=== PATIENT | male | born 1990 | race Caucasian/White ===

== ENCOUNTER 2020-07-12 14:03 | Emergency (ER) | payer OTHER ==
[~2020-07-12] VITALS: Ht 175.3 cm; Wt 101.2 kg
[2020-07-12] MEDS ORDERED: KETO10TA2 PO (19:02)
[2020-07-12] MEDS ORDERED: MORGIDOX100 MG PO (19:02)
== END 2020-07-12 19:14 | disposition home or self-care (01) ==
LOC: ER 14:03
DX: N45.1 Epididymitis (principal); N50.811 Right testicular pain

== ENCOUNTER 2021-12-17 17:57 | Emergency (ER) | payer OTHER ==
[~2021-12-17] VITALS: Ht 175.3 cm; Wt 97.5 kg
[~2021-12-17 17:57] MED LIST: KETO10TA2 PO; MORGIDOX100 MG PO
[2021-12-17] MEDS ORDERED: WELLBUTRIN XL300 MG PO (18:46)
[2021-12-17] MEDS ORDERED: DEXTROAMP-AMPHE25 MG PO (18:46)
== END 2021-12-17 21:08 | disposition home or self-care (01) ==
LOC: ER 17:57
DX: S61.012A Laceration without foreign body of left thumb without damage to nail, initial encounter (principal); X58.XXXA Exposure to other specified factors, initial encounter; Y93.89 Activity, other specified; Y92.89 Other specified places as the place of occurrence of the external cause

== ENCOUNTER 2022-07-01 07:49 | Emergency (ER) | payer OTHER ==
[~2022-07-01] VITALS: Ht 175.3 cm; Wt 105.7 kg
[~2022-07-01 07:49] MED LIST changes: +DEXTROAMP-AMPHE25 MG PO; +WELLBUTRIN XL300 MG PO
== END 2022-07-01 13:31 | disposition home or self-care (01) ==
LOC: ER 07:49
DX: K52.9 Noninfective gastroenteritis and colitis, unspecified (principal)